=== PATIENT | female | born 1990 | race Two or more races ===

== ENCOUNTER 2017-05-16 05:53 | Day surgery (SDC) | payer OTHER ==
[2017-05-16] MEDS ORDERED: ANESTHESIA TRAY IN PYXIS 1 EA TRAY MC ONE (06:19)
[2017-05-16] MEDS ORDERED: methylPREDNISolone ACETATE 80 MG/ML VIAL ONE (06:49)
[2017-05-16] MEDS ORDERED: LIDOCAINE 1% INJ 50 ML MDV IJ ONE (06:49)
[2017-05-16] MEDS ORDERED: MIDAZOLAM HCL 2 MG/2ML VIAL ONE (07:11)
[2017-05-16] MEDS ORDERED: HYDROCODONE/APAP 5/325MG 1 EACH TABLET ONE (08:58)
== END 2017-05-16 09:30 | disposition home or self-care (01) ==
LOC: DS 05:53
PROVIDERS: ATTEND Specialist
DX: S83.242A Other tear of medial meniscus, current injury, left knee, initial encounter (principal); X58.XXXA Exposure to other specified factors, initial encounter; Y93.9 Activity, unspecified; Y92.89 Other specified places as the place of occurrence of the external cause; Y99.9 Unspecified external cause status; M94.262 Chondromalacia, left knee
CPT/HCPCS: 36415; 84703-TC; A4217; A6253; J0690; J1040; J1100; J2250; J2704; J3490